=== PATIENT | male | born 1995 | race African-American/Black ===

== ENCOUNTER 2025-11-12 12:59 | Emergency (ER) | payer MEDICAID ==
[~2025-11-12] VITALS: Ht 175.3 cm; Wt 130.0 kg
[2025-11-12 13:21] VITALS: O2SAT 100
[2025-11-12] MEDS: KETOROLAC 15MG/ML VIAL IM ONE (16:15)
[2025-11-12] MEDS: CYCLOBENZAPRINE 10MG TABLET PO ONE (16:47)
[2025-11-12] MEDS: LIDOCAINE 5% PATCH TOP ONE (16:49)
[2025-11-12] MEDS ORDERED: LIDO700A30 TP (17:11)
[2025-11-12] MEDS ORDERED: IBUP-2028 MT (17:11)
[2025-11-12 17:56] VITALS: BP 135/82; PULSE 65; RESP 18; TEMP 36.7; O2SAT 100
== END 2025-11-12 18:00 | disposition home or self-care (01) ==
LOC: ER 12:59
DX: S39.012A Strain of muscle, fascia and tendon of lower back, initial encounter (principal); X58.XXXA Exposure to other specified factors, initial encounter; Y93.89 Activity, other specified; Y92.89 Other specified places as the place of occurrence of the external cause; Y99.8 Other external cause status
CPT/HCPCS: 99285; J1885